=== PATIENT | male | born 1980 | race Caucasian/White ===

== ENCOUNTER → 2019-09-30 16:17 | Outpatient (CLI) | payer OTHER, MEDICAID, SELFPAY ==
--- NOTE | 2019-09-30 16:21 | DI.RAD.S_ITS ---
PROCEDURE: XR WRIST LT MIN 3V INDICATIONS: Recurrent bilateral wrist pain/paresthesias TECHNIQUE: 4 views of the wrist were acquired. COMPARISON: None. FINDINGS: Bones: No acute fractures or dislocations. No suspicious bony lesions. Scaphoid view: Scaphoid appears intact. Scapholunate interval is maintained. Soft tissues: No suspicious soft tissue calcifications. IMPRESSION: Left wrist without acute fracture or malalignment. If there are persistent symptoms or clinical suspicion for pathology, then repeat radiographs or advanced imaging (CT, MRI or bone scan) should be considered for further evaluation. Dictated by: Robles Sterling M.D. on 09/30/2019 at 17:14 Approved by: Robles Sterling M.D. on 09/30/2019 at 17:15
--- NOTE | 2019-09-30 16:21 | DI.RAD.S_ITS ---
PROCEDURE: XR WRIST RT MIN 3V INDICATIONS: Recurrent bilateral wrist pain/paresthesias TECHNIQUE: 4 views of the wrist were acquired. COMPARISON: [facility], CR, XR WRIST LT MIN 3V, 09/30/2019, 15:27. FINDINGS: Bones: No fractures or dislocations. No suspicious bony lesions. Scaphoid view: Scaphoid appears intact. Scapholunate interval is maintained. Soft tissues: No suspicious soft tissue calcifications. IMPRESSION: Right wrist without acute radiographic abnormalities. If there are persistent symptoms or clinical suspicion for pathology, then repeat radiographs or advanced imaging (CT, MRI or bone scan) should be considered for further evaluation. Dictated by: Robles Sterling M.D. on 09/30/2019 at 17:15 Approved by: Robles Sterling M.D. on 09/30/2019 at 17:22
== END ==
PROVIDERS: Referring Provider Registered Nurse Diabetes Educator; Visit Provider Registered Nurse Diabetes Educator
DX: M25.531 Pain in right wrist (principal); M25.532 Pain in left wrist; R20.2 Paresthesia of skin
CPT/HCPCS: 73110

== ENCOUNTER → 2019-10-01 11:09 | Outpatient (CLI) | payer OTHER, MEDICAID, SELFPAY ==
[2019-10-01 11:42] LABS: Add Manual Diff / Slide Review NO; Basophils Absolute Auto 100 /uL (0-100); Basophils Percent Auto 1.2 % (0-2); Eosinophils Absolute Auto 300 /uL (0-450); Eosinophils Percent Auto 3.8 % (2-4); Hematocrit 44.9 % (41-53); Hemoglobin 15.7 g/dL (13.5-17.5); Lymphocytes Absolute Auto 2000 /uL (1100-4500); Lymphocytes Percent Auto 28.3 % (25-40); Mean Corpuscular HGB Conc 34.9 % (30-36); Mean Corpuscular Hemoglobin 31.5 PG (26-34); Mean Corpuscular Volume 90.3 fL (80-100); Monocytes Absolute Auto 600 /uL (0-900); Monocytes Percent Auto 7.9 % (3-14); Neutrophils Absolute Auto 4100 /uL (1500-7000); Neutrophils Percent Auto 58.8 % (50-75); Platelet Count 261 X10^3/uL (150-400); Red Blood Cell Count 4.97 X10^6/uL (4.5-5.9); Red Cell Distribution Width 12.9 % (11.6-14.8); White Blood Cell Count 6.9 X10^3/uL (4.5-11.0)
[2019-10-01 12:28] LABS: Alanine Aminotransferase 30 IU/L (<50); Albumin 4.8 g/dL (3.5-5.0); Albumin Globulin Ratio 1.8 (1.0-2.8); Alkaline Phosphatase 77 U/L (38-126); Aspartate Aminotransferase 29 IU/L (17-59); BUN Creatinine Ratio 16.9 (6-22); Bilirubin Total 1.2 mg/dL (0.2-1.3); Blood Urea Nitrogen 13 mg/dL (9-20); Calcium 9.9 mg/dL (8.4-10.2); Carbon Dioxide 30 mmol/L (22-32); Chloride 102 mmol/L (98-107); Cholesterol 161 mg/dL (140-199); Estimated Glomerular Filt Rate > 60.0 mL/min (>60); Globulin 2.7 g/dL (1.7-4.1); Glucose 92 mg/dL (70-100); HDL Cholesterol 42 mg/dL (40-60); HEMOLYSIS < 15 (0-50); LDL Cholesterol Calculated 92 mg/dL (<100); Potassium 4.4 mmol/L (3.4-5.1); Sodium 139 mmol/L (137-145); Total Protein 7.5 g/dL (6.3-8.2); Triglycerides 134 mg/dL (35-150)
== END ==
PROVIDERS: PCP Registered Nurse Diabetes Educator; Referring Provider Registered Nurse Diabetes Educator; Visit Provider Registered Nurse Diabetes Educator
DX: Z13.0 Encounter for screening for diseases of the blood and blood-forming organs and certain disorders involving the immune mechanism (principal); Z13.1 Encounter for screening for diabetes mellitus; Z13.220 Encounter for screening for lipoid disorders; G47.00 Insomnia, unspecified
CPT/HCPCS: 36415; 80053; 80061; 84443; 85025

== ENCOUNTER 2020-01-02 07:28 | Outpatient (RCR) | payer OTHER, MEDICAID, SELFPAY ==
--- NOTE | 2020-01-02 15:30 | OT.OP.EVAL ---
Visit Care Team Role Provider Type TIFFANY Lopez Attending Provider Advanced Rehab Trainer Primary Care Provider Referring Provider Specialty: Medical Address: [address] [place] [address], [facility] Email: [email or web address] Occupational Therapy Initial Evaluation OT Outpatient Adult Evaluation Start: 01/15/20 08:47 Freq: Status: Active Protocol: Document 01/02/20 15:30 AMS (Rec: 01/15/20 08:54 AMS [id number]) General Information Visit Start Time 07:40 Visit Stop Time 08:15 Total Visit Minutes 35 Plan of Care Dates 01/02/20-02/27/20 Insurance Information [facility] Treatment Setting Outpatient Care Note Type Initial Evaluation Identification Confirmed Yes Identification Confirmed By Patient Goals Objective Measurements Goniometer Measurements: L wrist AROM: 0-75 degrees wrist ext; 0-60 degrees wrist flex; 0-30 degrees UD; 0-[address] R wrist AROM: 0-68 degrees wrist ext; 0-60 degrees wrist flex; 0-30 degrees UD; 0-[address] Nail Mill Worker/Pinch Strength Averages: L dynamometer II: 65.7# of force (112.9 +/- 21.7); > 2 SD below the mean R dynamometer II: 73.3# of force (119.7 +/- 24.0); > 1 SD below the mean L Lateral Barriga Pinch: 21.7# of force (25.6 +/- 3.9); 1 SD below the mean R Lateral Barriga Pinch: 24.3# of force (26.1 +/- 3.2); within 1 SD below the mean Clean Energy Policy Analyst Goals 1. Patient will be modified independent with execution of distal UE home exercise program utilizing provided written and visual instructions from therapist. 2. Patient will present with increased ability to engage in meaningful activities, including work tasks, secondary to reduction in pain /discomfort. This will be evidenced by indication of 2 out 10 on the Pain Assessment Grid. Assessment/Plan Treatment Assessment Patient is a 39 y.o. right hand dominant male referred to outpatient OT by PCP secondary to paresthesia of bilateral hands. PMH: XR of L wrist min 3V; impression: left wrist without acute fracture or malalignment. Evaluation findings: Patient works full-time (40-hours) in [employer]; he reports bilateral hand pain which ' worsens when using them'. He reports slow onset ( approximately of 5-10 minutes) of pain/discomfort; he reports increasing pain/ discomfort as time progresses (> pain/discomfort after a couple of hours). Patient reports exacerbation of pain/ discomfort symptoms when typing, washing the dishes, using personal cell phone. Pain/discomfort has reportedly been present for 3+ months. Patient completed Pain Assessment Grid and indicated 0-4 on the Pain Assessment Grid relative to bilateral dorsal forearms. 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 He reports utilizing ice packs in the past for management of CTS. Patient has been referred to [facility] for Nerve Conduction study by PCP. Patient denied reproduction of sx w/ Phalen's test; he denied change in sensation of bilateral palms. Able to actively abduct all digits WFL; able to actively extend all digits off of TT. Decreased right active wrist extension; decreased bilateral paint brush maker strength (L paint brush maker strength weakness > than R; L paint brush maker strength > 2 SD below the mean). Reduced bilateral lateral barriga pinch strength. Recommend continued outpatient OT following Nerve Conduction study. Instructed in basic distal UE stretches; provided written and visual instructions w/ focus on reduced right wrist extension. Comment 8 weeks Treatment Frequency Once a Week Therapeutic Contents Active Range of Motion, Adaptive Equipment Education, Client Education,Cognitive Skills Development,Functional Activities,Home Exercise Program,Joint Protection, Manual Therapy,Education, Neurodevelopment Treatment, Neuromuscular Re-Education, Stretching/Flexibility Activities,Therapeutic Activities,Therapeutic Exercises,Modalities,Sensory Re-education Modalities As Needed,As Prescribed
--- NOTE | 2020-03-10 09:42 | OT.OP.DC ---
Visit Care Team Role Provider Type TIFFANY Lopez Attending Provider Advanced Source Water Protection Specialist Primary Care Provider Referring Provider Address: [address] [place] [address], [id number] Email: [email or web address] OT Outpatient OT Outpatient Adult Evaluation Start: 01/15/20 08:47 Freq: Status: Active Protocol: Document 01/02/20 15:30 AMS (Rec: 01/15/20 08:54 AMS [id number]) General Information Session Time Visit Start Time 07:40 Visit Stop Time 08:15 Total Visit Minutes 35 Visit Information Plan of Care Dates 01/02/20-02/27/20 Insurance Information [facility] Setting Treatment Setting Outpatient Care Visit Type Note Type Initial Evaluation Identification Identification Confirmed Yes Identification Confirmed By Patient Goals Objective Measurements Objective Measurements Goniometer Measurements: L wrist AROM: 0-75 degrees wrist ext; 0-60 degrees wrist flex; 0-30 degrees UD; 0-[address] R wrist AROM: 0-68 degrees wrist ext; 0-60 degrees wrist flex; 0-30 degrees UD; 0-[address] Casserole Preparer/Pinch Strength Averages: L dynamometer II: 65.7# of force (112.9 +/- 21.7); > 2 SD below the mean R dynamometer II: 73.3# of force (119.7 +/- 24.0); > 1 SD below the mean L Lateral Barriga Pinch: 21.7# of force (25.6 +/- 3.9); 1 SD below the mean R Lateral Barriga Pinch: 24.3# of force (26.1 +/- 3.2); within 1 SD below the mean Software Engineer Goals Nursing Home Goals 1. Patient will be modified independent with execution of distal UE home exercise program utilizing provided written and visual instructions from therapist. 2. Patient will present with increased ability to engage in meaningful activities, including work tasks, secondary to reduction in pain /discomfort. This will be evidenced by indication of 2 out 10 on the Pain Assessment Grid. Assessment/Plan Assessment Treatment Assessment Patient is a 39 y.o. right hand dominant male referred to outpatient OT by PCP secondary to paresthesia of bilateral hands. PMH: XR of L wrist min 3V; impression: left wrist without acute fracture or malalignment. Evaluation findings: Patient works full-time (40-hours) in [employer]; he reports bilateral hand pain which ' worsens when using them'. He reports slow onset ( approximately of 5-10 minutes) of pain/discomfort; he reports increasing pain/ discomfort as time progresses (> pain/discomfort after a couple of hours). Patient reports exacerbation of pain/ discomfort symptoms when typing, washing the dishes, using personal cell phone. Pain/discomfort has reportedly been present for 3+ months. Patient completed Pain Assessment Grid and indicated 0-4 on the Pain Assessment Grid relative to bilateral dorsal forearms. 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 He reports utilizing ice packs in the past for management of CTS. Patient has been referred to [facility] for Nerve Conduction study by PCP. Patient denied reproduction of sx w/ Phalen's test; he denied change in sensation of bilateral palms. Able to actively abduct all digits WFL; able to actively extend all digits off of TT. Decreased right active wrist extension; decreased bilateral manager internal strength (L manager internal strength weakness > than R; L manager internal strength > 2 SD below the mean). Reduced bilateral lateral barriga pinch strength. Recommend continued outpatient OT following Nerve Conduction study. Instructed in basic distal UE stretches; provided written and visual instructions w/ focus on reduced right wrist extension. Plan Comment 8 weeks Treatment Frequency Once a Week Therapeutic Contents Active Range of Motion, Adaptive Equipment Education, Client Education,Cognitive Skills Development,Functional Activities,Home Exercise Program,Joint Protection, Manual Therapy,Education, Neurodevelopment Treatment, Neuromuscular Re-Education, Stretching/Flexibility Activities,Therapeutic Activities,Therapeutic Exercises,Modalities,Sensory Re-education Modalities As Needed,As Prescribed Sensory Assessment Sensory Profile2 Functional Wrist/Hand Scan Hand Side OT Outpatient Treatment Note - Adult Start: 01/15/20 08:47 Freq: Status: Active Protocol: Document 03/10/20 09:41 AMS (Rec: 03/10/20 09:42 AMS [id number]) OT Outpatient Adult Treatment Note Visit Information Plan of Care Dates 01/02/20-02/27/20 Setting Treatment Setting Outpatient Care Visit Type Note Type Discharge Summary - Subjective Observations Patient has not been seen since 01/02/2020 and POC on 02/27/20. Thus, recommend d/c from outpatient OT and therapist to re- evaluate as deemed appropriate by PCP. - Objective Nursing Home Goals GOALS D/C 03/10/20 1. Patient will be modified independent with execution of distal UE home exercise program utilizing provided written and visual instructions from therapist. 2. Patient will present with increased ability to engage in meaningful activities, including work tasks, secondary to reduction in pain /discomfort. This will be evidenced by indication of 2 out 10 on the Pain Assessment Grid. - - Assessment Assessment of Improvement Patient has not been seen since 01/02/2020 and POC on 02/27/20. Thus, recommend d/c from outpatient OT and therapist to re- evaluate as deemed appropriate by PCP. - Plan Therapy Recommendations Discharge from Occupational Therapy
== END 2020-04-06 07:38 ==
LOC: OT 07:28
PROVIDERS: PCP Registered Nurse Diabetes Educator; Referring Provider Registered Nurse Diabetes Educator; Visit Provider Registered Nurse Diabetes Educator
DX: M25.539 Pain in unspecified wrist (principal)
CPT/HCPCS: 97165

== ENCOUNTER 2020-10-06 21:25 | Emergency (ER) | payer OTHER, MEDICAID, SELFPAY ==
[2020-10-06 21:37] VITALS: BP 156/85; PULSE 93; RESP 16; TEMP 36.9; O2SAT 98; BMI 28.0
--- NOTE | 2020-10-06 21:43 | ED_ITS ---
HPI - URI/Sore Throat General Chief Complaint: Upper Respiratory Symptoms Stated Complaint: WANTS COVID TEST Time Seen by Provider: 10/06/20 21:30 Source: patient Mode of arrival: Ambulatory History of Present Illness HPI Narrative: 40-year-old male nonsmoker with noncontributory medical history presents requesting a test for COVID after attending a baby shower over the weekend where there was someone who was later found to be COVID positive. Patient denies any symptoms whatsoever. Patient denies fever, headache, runny nose, nasal congestion, sore throat, cough or GI symptoms such as nausea, vomiting or diarrhea Related Data Home Medications Medication Instructions Recorded Confirmed albuterol sulfate 90 mcg/actuation 1 inhalation INHALATION ONCE 09/22/19 0 05/04/20 aerosol inhaler (Ventolin HFA) Allergies Allergy/AdvReac Type Severity Reaction Status Date / Time No Known Drug Allergies Allergy Verified 07/20/20 14:00 Review of Systems Review of Systems Narrative: GENERAL: Denies chills, fatigue, malaise, fever, sweats. HEENT: Denies sinus pain, ear pain, sore throat, difficulty swallowing, dizziness. RESPIRATORY: Denies dyspnea, cough, wheezing, hemoptysis, sputum. CARDIOVASCULAR: Denies chest pain, palpitations, orthopnea, edema, GASTROINTESTINAL: Denies nausea, vomiting, abdominal pain, diarrhea, constipation, melena. : Denies dysuria, frequency, incontinence, hematuria, urinary retention. MUSCULOSKELETAL: denies weakness, joint pain, or bony pain SKIN: Denies rash, skin lesions, or other NEUROLOGIC: Denies weakness, headache, numbness, change in speech, confusion, seizures, incoordination. PSYCHIATRIC: No concerning psychosocial issues. 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 Extraoccular muscles are intact bilaterally. There is no subconjunctival hemorrhage or exudate. CHEST: Lungs are clear to auscultation bilaterally and free of wheezes, rales, or rhonchi. Heart rate is regular rhythm, there are no murmurs, clicks, rubs, or gallops. There is no chest wall tenderness. ABD: Abdomen is soft and nontender. There is no guarding or rebound. Bowel sounds are normal in all 4 quadrants. There is no mass or organomegaly. EXT: Full painless ROM of all extremities with no loss of sensation or strength. SKIN: Warm, pink, and dry. No erythema or rash Initial Vital Signs Initial Vital Signs: Vital Signs Temperature 98.4 F 10/06/20 21:37 Pulse Rate 93 H 10/06/20 21:37 Respiratory Rate 16 10/06/20 21:37 Blood Pressure 156/85 H 10/06/20 21:37 Pulse Oximetry 98 10/06/20 21:37 Course Orders Ordered: ED Orders 10/06/20 21:33 COVID19 -Nasal swab/Pre-Proc Stat Vital Signs Vital signs: Vital Signs - 8 hr 10/06/20 21:37 10/06/20 22:38 Temperature 98.4 F Pulse Rate 93 H 83 Respiratory Rate 16 16 Blood Pressure 156/85 H 129/80 Pulse Oximetry 98 97 MDM - URI/Sore Throat Lab Data Labs: Lab Results 10/06/20 Range/Units 21:33 SARS-CoV-2 (PCR) Negative (Negative) Discharge Plan Departure Patient Disposition: Home Clinical Impression: Cough Instructions: Cough Activity Restrictions/Additional Instructions: *You have been diagnosed with [cough. Your physical exam, history of symptoms and COVID test are very reassuring.] *What to do: * please consider taking [id number] cough and cold medications with an antihistamine as we discussed. Antihistamines would include diphenhydramine, cetirizine, Kacie and other. This will help dry the secretions are likely causing many of your symptoms *Please follow up with your primary care provider in 2-3 days, call for an appointment. Let them know you were seen in the Emergency Department and that we ask that you be seen in follow up. We will electronically transmit a record of today's note if your PCP is in our system *If you do not have a primary care provider please contact the [facility] Resource line at [phone]. They will ask some questions about your medical history and help get you set up with a doctor in the community. *Return to Emergency Department if you should have any new, worsening or concerning symptoms, such as [fever greater than 101 F, shaking chills, worsening pain, persistent vomiting or other bothersome symptoms] Prescriptions: No Action albuterol sulfate [Ventolin HFA] 90 mcg/actuation HFA aerosol inhaler 1 inhalation INHALATION ONCE RF: 0 Referrals: Alex Jacobs ARNP [Primary Care Provider] -
[2020-10-06 22:23] LABS: COVID19 -Nasal RAPID Negative (Negative)
[2020-10-06 22:38] VITALS: BP 129/80; PULSE 83; RESP 16; O2SAT 97
== END 2020-10-06 22:38 | disposition home or self-care (01) ==
PROVIDERS: Emergency Provider Emergency Medicine; PCP Registered Nurse Diabetes Educator
DX: R05 Cough (principal); Z20.822 Contact with and (suspected) exposure to COVID-19
CPT/HCPCS: 87635; 99281; 99282; C9803

== ENCOUNTER 2024-07-24 09:59 | Emergency (ER) | payer SELFPAY ==
[2024-07-24 10:10] VITALS: BP 105/60; PULSE 70; RESP 18; TEMP 36.4; O2SAT 95; BMI 28.0
[2024-07-24] MEDS: IBUPROFEN 400 MG TABLET PO (10:23)
[2024-07-24] MEDS: ACETAMINOPHEN 325 MG TABLET PO (10:23)
--- NOTE | 2024-07-24 10:45 | ED_ITS ---
HPI - Extremity Injury (Lower) General Chief Complaint: Extremity Injury, Lower Stated Complaint: Right leg pain Time Seen by Provider: 07/24/24 10:13 Source: patient Mode of arrival: Wheelchair History of Present Illness HPI Narrative: otherwise healthy 44-year-old gentleman who was out on a run yesterday. He was running in the field, slightly uneven surface. Does not remember specific change or stepping wrong but all of sudden felt a tight snapping/ pulling pain to the right posterior calf. He was able to limp back to the car noted some calf swelling, has been icing it overnight continued swelling and pain. He is able to dorsiflex his foot without any difficulty. He does have trouble bearing full weight on the calf. There was no redness, warmth, swelling. No injury to the ankle or the knee. Never had similar complaints. 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 Tinnitus Paresthesia of hand, bilateral Insomnia Wrist pain Asthma Surgical History History of colonoscopy Smoking Status: Never smoker Exam Initial Vital Signs Initial Vital Signs: Vital Signs Temperature 97.6 F 07/24/24 10:10 Pulse Rate 70 07/24/24 10:10 Respiratory Rate 18 07/24/24 10:10 Blood Pressure 105/60 07/24/24 10:10 Pulse Oximetry 95 07/24/24 10:10 Oxygen Delivery Method Room Air 07/24/24 10:10 General: Alert appropriate in no acute distress Respiratory: Able to speak in full sentences, no obvious respiratory distress Skin: No obvious rashes, warm and dry Neurologic: Grossly intact no obvious asymmetries or abnormalities Psych: appropriate insight and affect, cooperative Extremity: Right calf is somewhat more swollen than the left without warmth or redness. There was no obvious step-off or abnormality. Does not have any obvious step-off or pain along the Achilles tendon and is able to dorsiflex without difficulty. He is neurovascularly intact Course Orders Ordered: Discontinued Medications Acetaminophen (Acetaminophen 325 Mg Tablet) 325 mg PO NOW ONE Stop: 07/24/24 10:17 Last Admin: 07/24/24 10:23 Dose: 325 mg Documented By: SIXTO Ibuprofen (Ibuprofen 400 Mg Tablet) 400 mg PO NOW ONE Stop: 07/24/24 10:17 Last Admin: 07/24/24 10:23 Dose: 400 mg Documented By: SIXTO Vital Signs Vital signs: Vital Signs - 8 hr 07/24/24 10:10 Temperature 97.6 F Pulse Rate 70 Respiratory Rate 18 Blood Pressure 105/60 Pulse Oximetry 95 Oxygen Delivery Method Room Air MDM - Extremity Injury (Lower) MDM Narrative Medical decision making narrative: 44-year-old gentleman with acute right calf pain during a run yesterday. Physical exam shows gastroc swelling and tenderness without Achilles pain or tenderness. Ankle and knee joints are unremarkable. There was no warmth or erythema to suggest DVT or infection. Suspect gastroc tear. Reviewed anticipated course of recovery, treatment, options for pain control and suggested he follow up with his primary care physician in approximately 2 weeks. Questions are answered he is safe for discharge Discharge Plan Departure Patient Disposition: Home Clinical Impression: Gastrocnemius muscle tear Qualifiers: Encounter type: initial encounter Laterality: right Qualified Code(s): S86.111A - Strain of other muscle(s) and tendon(s) of posterior muscle group at lower leg level, right leg, initial encounter Instructions: DI for Calf Muscle Strain Activity Restrictions/Additional Instructions: thank you for coming in today based on your history and exam, I suspect that you have at least a partial tear of your gastroc, calf, muscle. There was no suggestion that this involves her Achilles tendon, this is not a blood clot or an infection. Using 400 mg of ibuprofen (2 [id number] pills) and 1 Tylenol every 6 hours can be very helpful in controlling pain. Using a compression sock can also be helpful. A running compression sock is going to be most comfortable keeping the leg elevated, icing and minimal walking with that leg for at least a week is going to help with recovery I would recommend getting a rolling knee sclera, this can be helpful in managing with everyday life. Typically, this is going to take 6 weeks before it is entirely resolved, the 1st week you should walking as much as possible and then very gradually increase. To get back to running, please do start gently with much lower volumes mileage yanez and gentle walking. Do allow the pain to guide your return to activity I would suggest follow up with your primary care physician in about 2 weeks to make sure that you are improving. If you find that you are getting worse or develop any new symptoms, please feel free to return to the emergency department for further evaluation. Prescriptions: No Action albuterol sulfate [Ventolin HFA] 90 mcg/actuation HFA aerosol inhaler 1 inhalation INHALATION ONCE Referrals: Alex Jacobs ARNP [Advanced Deputy Controller] - Stand Alone Forms: Patient Portal/API/Survey
== END 2024-07-24 11:00 | disposition home or self-care (01) ==
PROVIDERS: Emergency Provider Emergency Medicine; PCP Physician Assistant
DX: S86.111A Strain of other muscle(s) and tendon(s) of posterior muscle group at lower leg level, right leg, initial encounter (principal); X58.XXXA Exposure to other specified factors, initial encounter
CPT/HCPCS: 99283